=== PATIENT | female | born 1930 | race Caucasian/White ===

== ENCOUNTER 2017-11-16 13:02 | Observation (INO) | payer MEDICARE, MEDICAID ==
--- NOTE | 2017-11-16 14:14 | ED PDOC ---
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 Pt reports she has hx dizziness for almost year now but this morning she felt dizzy more than usual. Denies any chest pain, palpitation, dyspnea, blurry vision, nausea, vomiting or headche before the dizziness or after dizziness. Denies fever, chills or complaints. PMD: Dr. Ayala <Sultan Veronica - Last Filed: 11/16/17 16:37> <Gus Johns - Last Filed: 11/16/17 16:49> Time Seen by Provider: 11/16/17 13:40 Chief Complaint (Nursing): Dizziness/Lightheaded Past Medical History Vital Signs: Last Vital Signs Temp 97.3 F L 11/16/17 13:06 Pulse 71 11/16/17 13:06 Resp 16 11/16/17 13:06 BP 108/54 L 11/16/17 13:06 Pulse Ox 98 11/16/17 13:06 - Medical History PMH: Bronchitis (Chronic ), Diverticulitis Other PMH: Childhood Albarran palsy - Surgical History Other surgeries: Partial colectomy - Family History Family History: States: No Known Family Hx - Social History Current smoker - smoking cessation education provided: No Alcohol: None Drugs: Richa <Sultan Veronica - Last Filed: 11/16/17 16:37> Vital Signs: Last Vital Signs Temp 97.3 F L 11/16/17 13:06 Pulse 71 11/16/17 13:06 Resp 16 11/16/17 13:06 BP 108/54 L 11/16/17 13:06 Pulse Ox 98 11/16/17 14:39 <Gus Johns - Last Filed: 11/16/17 16:49> - Allergies Allergies/Adverse Reactions: Allergies Allergy/AdvReac Type Severity Reaction Status Date / Time barley Allergy SWELLING Verified 11/16/17 13:12 gluten Allergy SWELLING Verified 11/16/17 13:12 wheat Allergy SWELLING Verified 11/16/17 13:12 Review of Systems Constitutional: Negative for: Fever, Chills Eyes: Negative for: Vision Change Cardiovascular: Negative for: Chest Pain, Palpitations Respiratory: Negative for: Cough, Shortness of Breath Gastrointestinal: Negative for: Nausea, Vomiting, Abdominal Pain Genitourinary Female: Negative for: Dysuria Neurological: Negative for: Confusion, Headache <Sultan Veronica - Last Filed: 11/16/17 16:37> Physical Exam - Physical Exam Appears: Negative for: Non-toxic, No Acute Distress Head Exam: Positive for: ATRAUMATIC (Facial asymetry, drooping on left sided. 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 Negative for: Murmur Respiratory: Positive for: Normal Breath Sounds. Negative for: Crackles, Wheezing Gastrointestinal/Abdominal: Positive for: Bowel Sounds, Soft. Negative for: Tenderness Extremity: Positive for: Normal ROM Neurologic/Psych: Positive for: Alert, Oriented <Sultan Veronica - Last Filed: 11/16/17 16:37> - Laboratory Results Result Diagrams: 11/16/17 15:08 11/16/17 15:08 - ECG O2 Sat by Pulse Oximetry: 98 - Radiology X-Ray: Read By Radiologist X-Ray Interpretation: No Acute Disease - Progress ED Course And Treament: Assessment: 87 yo female pmhx Albarran palsy presents to ED with c/o feeling dizzy and lightheadedness. Plan: EKG HEAD CT W/O CONTRAST CMP CBC MG TROPONIN I BLOOD CX URINE CX FINGER STICK GLUCOSE ORTHOSTATIC BP IV FLUID 500 CC NS BOLUS Case d/w ED attending Dr. Johns Re-evaluation: 4:30 pm Labs reviewed, CBC only remarkable for Hb 11.5 CT scan shows no acute intracranial hemorrhage CXR is negative for acute cardiopulmonary disease. Pt will be admitted for telemetry for continuous monitoring for [address] Ayala's service. Case d/w ED attending Dr. Johns <Sultan Veronica - Last Filed: 11/16/17 16:37> - Laboratory Results Result Diagrams: 11/16/17 15:08 11/16/17 15:08 <Gus Johns - Last Filed: 11/16/17 16:49> Medical Decision Making Medical Decision Makin yo female with feeling of wuzziness described as lightheadedness. No pain. Agree with resident history and physical, assessment and plan. DDx: Near Syncope r/o Neuro vs Cardiac vs BPV vs Infection PROCEDURE: CT scan brain dated 11/16/17. IMPRESSION: No acute intracranial hemorrhage. 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 Calcifications both dentate nuclei ; rule out metabolic abnormality. Moderate generalized volume loss. Mucoperiosteal inflammatory changes at aforementioned paranasal sinus Labs reviewed. CT reviewed. Discussed case with Dr. Ayala who will accept her to telemetry for near syncope, dizziness. EKG: NSR at [address] elevations, TWI III <Gus Johns - Last Filed: 11/16/17 16:49> Disposition <Sultan Veronica - Last Filed: 11/16/17 16:37> - Patient ED Disposition Is Patient to be Admitted: Yes - Disposition Disposition Time: 16:49 - Pt Status Changed To: Hospital Disposition Of: Observation <Gus Johns - Last Filed: 11/16/17 16:49> - Clinical Impression Clinical Impression: Near syncope - Disposition Condition: FAIR Forms: [employer] (Malay)
[2017-11-16] MEDS ORDERED: Sodium Chloride 0.9% 500 ML IV SCH (14:15)
[2017-11-16] MEDS ORDERED: DiphenhydrAMINE 50 mg/ml Inj IVP STA (14:40)
--- NOTE | 2017-11-16 14:48 | CT ---
PROCEDURE: CT scan brain dated 11/16/17. HISTORY: Near syncope. COMPARISON: No prior study available for comparison TECHNIQUE: Axial computed tomography images were obtained through the head/brain without intravenous contrast. Radiation dose: Total exam DLP = 757.76 mGy-cm. This CT exam was performed using one or more of the following dose reduction techniques: Automated exposure control, adjustment of the mA and/or kV according to patient size, and/or use of iterative reconstruction technique. FINDINGS: HEMORRHAGE: No acute parenchymal, subarachnoid or extra-axial. BRAIN: Mild to moderate diffuse/confluent chronic white matter ischemic changes seen extending peripherally into the deep and subcortical white matter both cerebral hemispheres. Changes are most conspicuous in the posterior parieto-occipital watershed zone. Additionally, there may also be a few scattered chronic appearing bilateral basal nuclei lacunar type infarcts. Calcifications seen dentate nuclei both cerebellar hemispheres; rule out the metabolic abnormality. Moderate generalized volume loss. Minor vascular calcifications both carotid siphons. VENTRICLES: No obstructive hydrocephalus. CALVARIUM: Unremarkable. PARANASAL SINUSES: Mild to moderate mucosal thickening seen within the ethmoid air complex. Minor mucosal thickening sphenoid sinus. MASTOID AIR CELLS: Unremarkable as visualized. No inflammatory changes. OTHER FINDINGS: None. IMPRESSION: No acute intracranial hemorrhage. 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 Calcifications both dentate nuclei ; rule out metabolic abnormality. Moderate generalized volume loss. Mucoperiosteal inflammatory changes at aforementioned paranasal sinuses.
[2017-11-16 15:20] LABS: BASO # 0.1 K/uL (0.0-0.2); EOS # 0.2 K/uL (0.0-0.7); EOS % 4.2 % (0.0-4.0); HEMOGLOBIN 11.5 g/dL (12.0-16.0); LYMPH # 0.9 K/uL (1.0-4.3); MEAN CELL VOLUME 95.1 fl (81.0-99.0); MEAN CORPUSCULAR HGB CONC 33.7 g/dL (33.0-37.0); MEAN PLATELET VOLUME 7.6 fl (7.2-11.7); MONO # 0.3 K/uL (0.0-0.8); MONO % 6.8 % (0.0-10.0); NEUT # 3.6 K/uL (1.8-7.0); RBC 3.58 Mil/uL (3.80-5.20); RED CELL DISTRIBUTION WIDTH 13.5 % (11.5-14.5); WHITE BLOOD COUNT 5.2 K/uL (4.8-10.8)
[2017-11-16 15:29] LABS: ALB/GLOB RATIO 1.3 (1.0-2.1); ALBUMIN 3.5 g/dL (3.5-5.0); ALT/SGPT 30 U/L (9-52); AST/SGOT 22 U/L (14-36); BLOOD UREA NITROGEN 20 mg/dl (7-17); CALCIUM 9.1 mg/dL (8.4-10.2); GFR AFRICAN-AMERICAN > 60; GFR NON-AFRICAN AMERICAN 59
--- NOTE | 2017-11-16 16:27 | RAD ---
HISTORY: near syncope COMPARISON: 04/18/2009. FINDINGS: LUNGS: No active pulmonary disease. PLEURA: No significant pleural effusion identified, no pneumothorax apparent. CARDIOVASCULAR: No radiographic findings to suggest acute or significant cardiovascular disease. OSSEOUS STRUCTURES: No significant abnormalities. VISUALIZED UPPER ABDOMEN: Normal. OTHER FINDINGS: None. IMPRESSION: No active disease. No significant interval change compared to the prior examination(s).
[2017-11-16 20:20] VITALS: RESP 18
[2017-11-17] MEDS ORDERED: Patient's Own Med (Albuterol Sulfate 2 PUFF) IH PRN (06:14)
[2017-11-17] MEDS ORDERED: Albuterol HFA 90 mcg/actuation (8 g) INH PRN (06:21)
[2017-11-17] MEDS ORDERED: BRIMONIDINE TART EACHEYE SCH (09:00)
[2017-11-17] MEDS ORDERED: Pantoprazole 40 mg EC Tab PO SCH (09:00)
[2017-11-17] MEDS ORDERED: Fluticasone-Salmeterol 250-50mcg Diskus IH SCH (09:00)
[2017-11-17] MEDS ORDERED: BRINZOLAMIDE EACHEYE SCH (09:00)
[2017-11-17] MEDS ORDERED: Dorzolamide 2% Ophth Soln OU SCH (09:00)
[2017-11-17] MEDS ORDERED: Brimonidine 0.2% 50 DROP/5 ML BOTTLE OU SCH (09:00)
[2017-11-17] MEDS ORDERED: Patient's Own Med (Fluticasone/Vilanterol [Breo Ellipta 200-25 Mcg Inh] 1 PUFF) IH SCH (09:00)
--- NOTE | 2017-11-17 09:54 | CP.PCM.HP ---
History of Present Illness - History of Present Illness History of Present Illness: 87 YO F w/ PMH of albarran palsy was admitted for dizziness. Dizziness has been going on for some time but recently has gotten worse. Dizziness is aggrevated when getting up all of a sudden. States it sometimes occurs when she has not ate properly and is associated with some sweating, but denies palpatations. Denies any LOC or head trauma. Currently since she has been at the hospital she denies such symptoms. Currently denies chest pain, palpatations, SOB, dyspnea, nausea, vomiting diarrhea. PMH: Diverticulitis, Cilliac disease, Chronic bronchitis Allergy: Barley, gluten , wheat PMD: Dr. Ayala Present on Admission - Present on Admission Any Indicators Present on Admission: No Review of Systems - Review of Systems All systems: reviewed and no additional remarkable complaints except Past Patient History - Infectious Disease Hx of Infectious Diseases: None - Past Medical History & Family History Past Medical History?: Yes - Past Social History Smoking Status: Never Smoked - CARDIAC Hx Cardiac Disorders: No - PULMONARY Hx Respiratory Disorders: Yes Hx Bronchitis: Yes (Chronic ) - NEUROLOGICAL Hx Neurological Disorder: No - HEENT Hx HEENT Problems: Yes Hx Cataracts: Yes - RENAL Hx Chronic Kidney Disease: No - ENDOCRINE/METABOLIC Hx Endocrine Disorders: No - HEMATOLOGICAL/ONCOLOGICAL Hx Blood Disorders: No - INTEGUMENTARY Hx Dermatological Problems: No - MUSCULOSKELETAL/RHEUMATOLOGICAL Hx Musculoskeletal Disorders: No Hx Falls: No - GASTROINTESTINAL Hx Gastrointestinal Disorders: Yes Hx Diverticulitis: Yes Other/Comment: Celiac disease - GENITOURINARY/GYNECOLOGICAL Hx Genitourinary Disorders: Yes Hx Incontinence: Yes - PSYCHIATRIC Hx Psychophysiologic Disorder: No Hx Substance Use: No - SURGICAL HISTORY Hx Surgeries: Yes Other/Comment: left eyelid surgery, partial colectomy - ANESTHESIA Hx Anesthesia: Yes Hx Anesthesia Reactions: No Meds Home Medications: Home Medication List Medication Instructions Recorded Confirmed Type Meclizine [Meclizine*] 25 mg PO Q6 #30 tab 11/17/17 Rx Allergies/Adverse Reactions: Allergies Allergy/AdvReac Type Severity Reaction Status Date / Time barley Allergy SWELLING Verified 11/16/17 13:12 gluten Allergy SWELLING Verified 11/16/17 13:12 wheat Allergy SWELLING Verified 11/16/17 13:12 Physical Exam - Constitutional Appears: No Acute Distress - Head Exam Head Exam: NORMAL INSPECTION Additional comments: facial asymetry, drooping of left side. 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 absent: Rhonchi, Wheezes - Cardiovascular Exam Cardiovascular Exam: REGULAR RHYTHM, +S1, +S2 - GI/Abdominal Exam GI & Abdominal Exam: Normal Bowel Sounds, Soft. absent: Tenderness - Neurological Exam Neurological exam: Alert, Oriented x3 - Skin Skin Exam: Normal Color, Warm Results - Vital Signs Recent Vital Signs: Last Vital Signs Temp 98.9 F 11/17/17 08:50 Pulse 75 11/17/17 08:50 Resp 18 11/17/17 08:50 BP 159/74 H 11/17/17 08:50 Pulse Ox 96 11/17/17 08:50 - Labs Result Diagrams: 11/16/17 15:08 11/16/17 15:08 Labs: Laboratory Results - last 24 hr 11/16/17 11/16/17 11/16/17 13:19 15:08 15:08 WBC 5.2 RBC 3.58 L Hgb 11.5 L Hct 34.0 MCV 95.1 MCH 32.0 H MCHC 33.7 RDW 13.5 Plt Count 177 MPV 7.6 Neut % (Auto) 70.0 Lymph % (Auto) 18.0 L [place] % (Auto) 6.8 Eos % (Auto) 4.2 H Baso % (Auto) 1.0 Neut # (Auto) 3.6 Lymph # (Auto) 0.9 L [place] # (Auto) 0.3 Eos # (Auto) 0.2 Baso # (Auto) 0.1 Sodium 141 Potassium 4.6 Chloride 109 H Carbon Dioxide 24 Anion Gap 13 BUN 20 H Creatinine 0.9 Est GFR ( Amer) > 60 Est GFR (Non-Af Amer) 59 POC Glucose (mg/dL) 85 Random Glucose 88 Calcium 9.1 Magnesium 2.0 Total Bilirubin 0.4 AST 22 ALT 30 Alkaline Phosphatase 52 Troponin I < 0.0120 Total Protein 6.2 L Albumin 3.5 Globulin 2.6 Albumin/Globulin Ratio 1.3 Assessment & Plan - Assessment and Plan (Free Text) Assessment: 87 yo female pmhx Albarran palsy was admitted with c/o feeling dizzy and lightheadedness. 1) Dizziness/ light headedness (resolved) unknown etiology: - Patient is being admitted for observation on telemetry - IV fluids - Neurocheck Q4 - Head CT negative - Troponin x1 negative - Meclizine PRN
[2017-11-17 13:24] VITALS: BP 100/63; PULSE 80; TEMP 97.8; O2SAT 94
--- NOTE | 2017-11-17 14:49 | CP.PCM.DIS ---
Provider - Provider Date of Admission: 11/16/17 16:10 Attending physician: Mg Ayala MD Time Spent in preparation of Discharge (in minutes): 30 Diagnosis - Discharge Diagnosis (1) Dizziness Status: Acute Hospital Course - Lab Results Lab Results: Most Recent Lab Values WBC 5.2 K/uL (4.8-10.8) 11/16/17 15:08 RBC 3.58 Mil/uL (3.80-5.20) L 11/16/17 15:08 Hgb 11.5 g/dL (12.0-16.0) L 11/16/17 15:08 Hct 34.0 % (34.0-47.0) 11/16/17 15:08 MCV 95.1 fl (81.0-99.0) 11/16/17 15:08 MCH 32.0 pg (27.0-31.0) H 11/16/17 15:08 MCHC 33.7 g/dL (33.0-37.0) 11/16/17 15:08 RDW 13.5 % (11.5-14.5) 11/16/17 15:08 Plt Count 177 K/uL (130-400) 11/16/17 15:08 MPV 7.6 fl (7.2-11.7) 11/16/17 15:08 Neut % (Auto) 70.0 % (50.0-75.0) 11/16/17 15:08 Lymph % (Auto) 18.0 % (20.0-40.0) L 11/16/17 15:08 [place] % (Auto) 6.8 % (0.0-10.0) 11/16/17 15:08 Eos % (Auto) 4.2 % (0.0-4.0) H 11/16/17 15:08 Baso % (Auto) 1.0 % (0.0-2.0) 11/16/17 15:08 Neut # (Auto) 3.6 K/uL (1.8-7.0) 11/16/17 15:08 Lymph # (Auto) 0.9 K/uL (1.0-4.3) L 11/16/17 15:08 [place] # (Auto) 0.3 K/uL (0.0-0.8) 11/16/17 15:08 Eos # (Auto) 0.2 K/uL (0.0-0.7) 11/16/17 15:08 Baso # (Auto) 0.1 K/uL (0.0-0.2) 11/16/17 15:08 Sodium 141 mmol/l (132-148) 11/16/17 15:08 Potassium 4.6 MMOL/L (3.6-5.0) 11/16/17 15:08 Chloride 109 mmol/L (98-107) H 11/16/17 15:08 Carbon Dioxide 24 mmol/L (22-30) 11/16/17 15:08 Anion Gap 13 (10-20) 11/16/17 15:08 BUN 20 mg/dl (7-17) H 11/16/17 15:08 Creatinine 0.9 mg/dl (0.7-1.2) 11/16/17 15:08 Est GFR ( Amer) > 60 11/16/17 15:08 Est GFR (Non-Af Amer) 59 11/16/17 15:08 POC Glucose (mg/dL) 85 mg/dL (65-110) 11/16/17 13:19 Random Glucose 88 mg/dL (65-105) 11/16/17 15:08 Calcium 9.1 mg/dL (8.4-10.2) 11/16/17 15:08 Magnesium 2.0 MG/DL (1.6-2.3) 11/16/17 15:08 Total Bilirubin 0.4 mg/dl (0.2-1.3) 11/16/17 15:08 AST 22 U/L (14-36) 11/16/17 15:08 ALT 30 U/L (9-52) 11/16/17 15:08 Alkaline Phosphatase 52 U/L (38-126) 11/16/17 15:08 Troponin I < 0.0120 ng/mL (0.00-0.120) 11/16/17 15:08 Total Protein 6.2 G/DL (6.3-8.2) L 11/16/17 15:08 Albumin 3.5 g/dL (3.5-5.0) 11/16/17 15:08 Globulin 2.6 gm/dL (2.2-3.9) 11/16/17 15:08 Albumin/Globulin Ratio 1.3 (1.0-2.1) 11/16/17 15:08 - Hospital Course Hospital Course: 87 YO F was admitted to [facility] under observation for episodic dizziness. Patient was thoroughly worked up. Head CT did not show any acute events. Symptoms have resolved and patient is feeling better. Patient has been advised to increase hydration and not skip meals. Also is being given meclizine to take for the dizziness. Discharge Exam - Head Exam Head Exam: NORMAL INSPECTION Additional comments: facial asymmetry, drooping of left side, unable to close left eye lid. - Eye Exam Eye Exam: Normal appearance - Respiratory Exam Respiratory Exam: Clear to PA & Lateral. absent: Wheezes, Respiratory Distress - Cardiovascular Exam Cardiovascular Exam: REGULAR RHYTHM, +S1, +S2 - GI/Abdominal Exam GI & Abdominal Exam: Normal Bowel Sounds, Soft. absent: Tenderness - Neurological Exam Neurological exam: Alert, Oriented x3 - Skin Skin Exam: Normal Color, Warm Discharge Plan - Discharge Medications Prescriptions: Meclizine [Meclizine*] 25 mg PO Q6 #30 tab - Follow Up Plan Condition: GOOD Disposition: HOME/ ROUTINE Instructions: Syncope (DC) Additional Instructions: pt. cleared for discharge to Home today by Rx for meds given - Increase hydration and do not skip meals pt. will f/u with pmd in 1 week Referrals: Mg Ayala MD [Family Provider] -
--- NOTE | 2017-11-17 17:03 | CARD ---
APPROVED REPORT EKG Measurement Heart [id number] <Conclusion> Normal sinus rhythm Nonspecific ST abnormality Abnormal ECG
[2017-11-17] MEDS ORDERED: Latanoprost 0.005% Opht SOUTION OU SCH (22:00)
[2017-11-23] MEDS ORDERED: Ergocalciferol 50,000 Intl Units Cap PO SCH (06:14)
== END 2017-11-17 16:00 | disposition home or self-care (01) ==
LOC: H.ER 13:02 → H.ERHOLD 16:10 → H.TEL 21:00
PROVIDERS: ADMIT Family Medicine; ATTEND Family Medicine
DX: R42 Dizziness and giddiness (principal); G51.0 Bell's palsy; Z91.018 Allergy to other foods
CPT/HCPCS: 70450; 71045; 80053; 82948; 83735; 84484; 85025; 87040; 87086; 93005; 99283; G0378; J7040